=== PATIENT | male | born 1990 | race Caucasian/White ===

== ENCOUNTER 2020-12-05 14:14 | Emergency (ER) | payer OTHER ==
[~2020-12-05] VITALS: Ht 177.8 cm; Wt 77.3 kg
[2020-12-05] MEDS ORDERED: LIDOcaine 1% W/epiNEPHrine 1:200,000 10ml vial IJ ONE ×3 (14:45→19:25)
[2020-12-05] MEDS ORDERED: HYDROcodone/acetaminophen 10/325mg tab PO ONE (19:35)
--- NOTE | 2020-12-05 21:01 | NUR ---
PATIENT WAS WRESTLING IN FUN HE STUMBLED AND HIT HIS HEAD ON A WALL. LONG AND LARGE LAC TO VERTEX. PATIENTS WOUND CLEANED AND SUTURED. NORCO 10 FOR PAIN WITH GOOD EFFECT DISCH INST REVIEWED. DISCH TO HOME WITH GIRLFRIEND DRIVING.
[2020-12-05 21:08] VITALS: BP 158/98
[2020-12-05] MEDS ORDERED: HYDR-3968 PO (21:17)
== END 2020-12-05 21:10 | disposition home or self-care (01) ==
LOC: ER 14:15
DX: S01.01XA Laceration without foreign body of scalp, initial encounter (principal); S09.90XA Unspecified injury of head, initial encounter; Z72.89 Other problems related to lifestyle; Z79.899 Other long term (current) drug therapy; W22.8XXA Striking against or struck by other objects, initial encounter; Y93.89 Activity, other specified; Y92.89 Other specified places as the place of occurrence of the external cause; Y99.8 Other external cause status
CPT/HCPCS: 12034; 70450; 99284

== ENCOUNTER 2020-12-21 09:32 | Emergency (ER) | payer OTHER ==
[~2020-12-21] VITALS: Ht 177.8 cm; Wt 98.3 kg
[~2020-12-21 09:32] MED LIST: HYDR-3968 PO
[2020-12-21 09:43] VITALS: BP 128/87
--- NOTE | 2020-12-21 10:53 | NUR ---
removed [address] scalp[address] Garcia advised
== END 2020-12-21 10:42 | disposition home or self-care (01) ==
LOC: ER 09:32
DX: S01.01XD Laceration without foreign body of scalp, subsequent encounter (principal); R51.9 Headache, unspecified; Z48.02 Encounter for removal of sutures; Z72.89 Other problems related to lifestyle; Z79.899 Other long term (current) drug therapy; Z48.03 Encounter for change or removal of drains; W19.XXXD Unspecified fall, subsequent encounter
CPT/HCPCS: 99281